=== PATIENT | male | born 1985 | race African-American/Black ===

== ENCOUNTER 2019-06-10 17:12 | Emergency (ER) | payer OTHER ==
[~2019-06-10] VITALS: Ht 193 cm; Wt 83.9 kg
[2019-06-10] MEDS ORDERED: HYDROMORPHONE HCL 2 MG TABLET ONE ×2 (17:58→18:35)
[2019-06-10] MEDS ORDERED: HYDROMORPHONE HCL 2 MG TABLET PO ONE ×2 (18:00→18:30)
[2019-06-10 18:52] VITALS: BP 139/88
== END 2019-06-10 18:54 | disposition home or self-care (01) ==
LOC: ER 17:16
DX: S82.841A Displaced bimalleolar fracture of right lower leg, initial encounter for closed fracture (principal); X50.1XXA Overexertion from prolonged static or awkward postures, initial encounter; Y93.89 Activity, other specified; Y92.89 Other specified places as the place of occurrence of the external cause; Y99.8 Other external cause status
CPT/HCPCS: 73600; 73620; A4663